=== PATIENT | male | born 1950 | race African-American/Black ===

== ENCOUNTER 2017-09-25 08:59 | Inpatient (IN) | payer MEDICARE, MEDICAID ==
[~2017-09-25] VITALS: Ht 180.3 cm; Wt 66.2 kg
[~2017-09-25 08:59] MED LIST: RISP1 PO
[2017-09-25 11:50] LABS: BASOPHILS % (AUTO) 0.6 % (0.0-2.0); EOSINOPHILS % (AUTO) 1.4 % (1.0-6.0); HEMATOCRIT 40.2 % (41-53); HEMOGLOBIN 13.8 g/dL (13.5-17.5); LYMPHOCYTES # (AUTO) 1.5 K/uL (1.0-4.8); LYMPHOCYTES % (AUTO) 19.9 % (22.0-44.0); MEAN CORPUSCULAR HEMOGLOBIN 32.4 pg (26.0-34.0); MEAN CORPUSCULAR HGB CONC 34.4 G/dL (31.0-37.0); MEAN CORPUSCULAR VOLUME 94 fL (80-100); MONOCYTES # (AUTO) 0.9 K/uL (0.1-1.0); MONOCYTES % (AUTO) 11.3 % (2.0-9.0); NEUTROPHILS # (AUTO) 5.1 K/uL (1.8-7.7); NEUTROPHILS % (AUTO) 66.8 % (40.0-70.0); PLATELET COUNT (AUTO) 278 K/uL (150-450); RED BLOOD CELL COUNT(AUTO) 4.26 MIL/uL (4.50-5.90); RED CELL DISTRIBUTION WIDTH 15.3 % (11.5-14.5)
[2017-09-25 11:59] LABS: ANION GAP 9 mmol/L (8-16); CALCIUM, TOTAL 8.7 mg/dL (8.8-10.5); CARBON DIOXIDE 28 mmol/L (22-29); CHLORIDE 101 mmol/L (98-107); CREATININE 1.12 mg/dL (0.60-1.30); GLOMERULAR FILTR. RATE CALC > 60 mL/min (>60); GLUCOSE,RANDOM 91 mg/dL (70-110); POTASSIUM 3.8 mmol/L (3.5-5.1); SODIUM SERUM 138 mmol/L (136-145); UREA NITROGEN, BLOOD 22 mg/dL (7-18)
[2017-09-25 12:05] LABS: ALANINE AMINOTRANSFERASE 29 U/L (12-78); ALBUMIN 3.6 g/dL (3.4-5.0); ALKALINE PHOSPHATASE 36 U/L (46-116); ASPARTATE AMINOTRANSFERASE 29 U/L (15-37); BILIRUBIN,TOTAL 1.4 mg/dL (0.1-1.0); TOTAL PROTEIN, SERUM 7.2 g/dL (6.4-8.2)
[2017-09-25] MEDS ORDERED: LORazepam 2 MG TABLET PO PRN (14:00)
[2017-09-25] MEDS ORDERED: ZOLPIDEM TARTRATE 10 MG TABLET PO PRN (14:00)
[2017-09-25] MEDS ORDERED: HALOPERIDOL 5 MG TABLET PO PRN (14:00)
[2017-09-25 16:36] VITALS: BP 133/85
[2017-09-25] MEDS ORDERED: IBUPROFEN 600 MG TABLET PO PRN (17:15)
[2017-09-26 00:49] VITALS: BP 130/82
[2017-09-26] MEDS ORDERED: MAGNESIUM HYDROXIDE SUSPENSION 30 ML UDCUP PO PRN (07:15)
[2017-09-26] MEDS ORDERED: BENZOCAINE/MENTHOL LOZENGE MM PRN (07:15)
[2017-09-26] MEDS ORDERED: ONDANSETRON HCL 4 MG TABLET PO PRN (07:15)
[2017-09-26] MEDS ORDERED: PETROLATUM,WHITE 71 GM JELLY TP PRN (07:15)
[2017-09-26] MEDS ORDERED: ALBUTEROL SULFATE HFA 90 MCG/PUFF 8 GM INHALER IH PRN (07:15)
[2017-09-26] MEDS ORDERED: CloNIDine HCL 0.1 MG TABLET PO PRN (07:15)
[2017-09-26] MEDS ORDERED: BACITRACIN 28.4 GM OINTMENT TP PRN (07:15)
[2017-09-26] MEDS ORDERED: ACETAMINOPHEN 325 MG TABLET PO PRN (07:15)
[2017-09-26] MEDS ORDERED: MAG HYDROX/AL HYDROX/SIMETH ES 30 ML SUSPENSION UDCUP PO PRN (07:15)
[2017-09-26] MEDS ORDERED: LOPERAMIDE HCL 2 MG CAPSULE PO PRN (07:15)
[2017-09-26] MEDS ORDERED: IBUPROFEN 600 MG TABLET PO PRN (07:15)
[2017-09-26 09:29] VITALS: BP 145/79
[2017-09-26] MEDS: RisperiDONE 1 MG TABLET PO SCH (12:46)
[2017-09-26 16:00] VITALS: BP 128/72
[2017-09-27] VITALS: BP 142/81
[2017-09-27 08:46] VITALS: BP 145/81
[2017-09-27] MEDS: ATENOLOL 50 MG TABLET PO SCH (09:00)
[2017-09-27] MEDS: RisperiDONE 1 MG TABLET PO SCH (09:03)
[2017-09-27 09:56] VITALS: BP 104/79
[2017-09-27 16:00] VITALS: BP 110/68
[2017-09-28 08:47] VITALS: BP 133/87
[2017-09-28] MEDS: ATENOLOL 50 MG TABLET PO SCH (08:47)
[2017-09-28] MEDS: RisperiDONE 1 MG TABLET PO SCH (08:47)
[2017-09-28] MEDS ORDERED: ATEN50TA PO (10:19)
== END 2017-09-28 12:08 | disposition home or self-care (01) | DRG 750 ==
LOC: EMS 09:00 → B2S 14:02
PROVIDERS: ADMIT Psychiatry & Neurology Child & Adolescent Psychiatry; ATTEND Psychiatry & Neurology Child & Adolescent Psychiatry
DX: F20.0 Paranoid schizophrenia (principal); F10.231 Alcohol dependence with withdrawal delirium; J44.9 Chronic obstructive pulmonary disease, unspecified; B18.2 Chronic viral hepatitis C; F14.10 Cocaine abuse, uncomplicated; F15.10 Other stimulant abuse, uncomplicated; G47.00 Insomnia, unspecified; I10 Essential (primary) hypertension; M19.90 Unspecified osteoarthritis, unspecified site; F17.210 Nicotine dependence, cigarettes, uncomplicated; F41.9 Anxiety disorder, unspecified; Z71.6 Tobacco abuse counseling
CPT/HCPCS: 99285; 99406; G0480

== ENCOUNTER 2019-05-26 23:47 | Inpatient (IN) | payer MEDICARE, MEDICAID ==
[~2019-05-26] VITALS: Ht 175.3 cm; Wt 64.9 kg
[~2019-05-26 23:47] MED LIST changes: +ATEN50TA PO; +OLAN10TA3 PO; -RISP1 PO; +TRAZ-252 PO
[2019-05-27 00:30] LABS: BASOPHILS % (AUTO) 1.4 % (0.0-2.0); EOSINOPHILS % (AUTO) 1.2 % (1.0-6.0); HEMATOCRIT 43.7 % (41-53); HEMOGLOBIN 14.4 g/dL (13.5-17.5); LYMPHOCYTES # (AUTO) 1.8 K/uL (1.0-4.8); LYMPHOCYTES % (AUTO) 21.4 % (22.0-44.0); MEAN CORPUSCULAR HEMOGLOBIN 30.8 pg (26.0-34.0); MEAN CORPUSCULAR VOLUME 94 fL (80-100); MONOCYTES # (AUTO) 0.9 K/uL (0.1-1.0); MONOCYTES % (AUTO) 10.5 % (2.0-9.0); NEUTROPHILS # (AUTO) 5.6 K/uL (1.8-7.7); NEUTROPHILS % (AUTO) 65.5 % (40.0-70.0); PLATELET COUNT (AUTO) 267 K/uL (150-450); RED BLOOD CELL COUNT(AUTO) 4.68 MIL/uL (4.50-5.90); RED CELL DISTRIBUTION WIDTH 15.2 % (11.5-14.5)
[2019-05-27 00:44] LABS: ANION GAP 13 mmol/L (8-16); CALCIUM, TOTAL 9.8 mg/dL (8.8-10.5); CARBON DIOXIDE 24 mmol/L (22-29); CHLORIDE 103 mmol/L (98-107); CREATININE 1.69 mg/dL (0.60-1.30); GLOMERULAR FILTR. RATE CALC 49 mL/min (>60); GLUCOSE,RANDOM 112 mg/dL (70-110); POTASSIUM 4.5 mmol/L (3.5-5.1); SODIUM SERUM 140 mmol/L (136-145); UREA NITROGEN, BLOOD 39 mg/dL (7-18)
[2019-05-27] MEDS ORDERED: HALOPERIDOL LACTATE 5 MG/ML VIAL IM ONE (00:45)
[2019-05-27] MEDS ORDERED: LORazepam 2 MG/ML VIAL IM ONE (00:45)
[2019-05-27 00:49] LABS: ALANINE AMINOTRANSFERASE 20 U/L (12-78); ALBUMIN 4.6 g/dL (3.4-5.0); ALKALINE PHOSPHATASE 45 U/L (46-116); ASPARTATE AMINOTRANSFERASE 29 U/L (15-37); BILIRUBIN,TOTAL 1.7 mg/dL (0.1-1.0); TOTAL PROTEIN, SERUM 8.4 g/dL (6.4-8.2)
[2019-05-27 01:25] LABS: CREATINE KINASE, TOTAL ONLY 744 U/L (39-308)
[2019-05-27] MEDS ORDERED: ACETAMINOPHEN 325 MG TABLET PO PRN ×2 (02:15→13:30)
[2019-05-27] MEDS ORDERED: 0.9% SODIUM CHLORIDE 10 ML SYRINGE IVP PRN (02:15)
[2019-05-27] MEDS ORDERED: ZOLPIDEM TARTRATE 10 MG TABLET PO PRN (02:30)
[2019-05-27] MEDS ORDERED: HALOPERIDOL 5 MG TABLET PO PRN (02:30)
[2019-05-27] MEDS ORDERED: LORazepam 2 MG TABLET PO PRN (02:30)
[2019-05-27 04:33] VITALS: BP 122/56
[2019-05-27] MEDS: PNEUMOCOCCAL VACCINE POLYVALENT 0.5 ML VIAL [PPSV23] IM ONE (06:30)
[2019-05-27] MEDS: ATENOLOL 50 MG TABLET PO SCH (09:59)
[2019-05-27] MEDS ORDERED: ONDANSETRON HCL 4 MG TABLET PO PRN (13:30)
[2019-05-27] MEDS ORDERED: MAG HYDROX/AL HYDROX/SIMETH ES 30 ML SUSPENSION UDCUP PO PRN (13:30)
[2019-05-27] MEDS ORDERED: ALBUTEROL SULFATE HFA 90 MCG/PUFF 8 GM INHALER IH PRN (13:30)
[2019-05-27] MEDS ORDERED: PETROLATUM,WHITE 28 GM JELLY TP PRN (13:30)
[2019-05-27] MEDS ORDERED: CloNIDine HCL 0.1 MG TABLET PO PRN (13:30)
[2019-05-27] MEDS ORDERED: IBUPROFEN 400 MG TABLET PO PRN (13:30)
[2019-05-27] MEDS ORDERED: MAGNESIUM HYDROXIDE SUSPENSION 30 ML UDCUP PO PRN (13:30)
[2019-05-27] MEDS ORDERED: GuaiFENesin/D-METHORPHAN [SUGAR-FREE] 200-20MG/10 ML SYRUP UDCUP PO PRN (13:30)
[2019-05-27] MEDS ORDERED: LOPERAMIDE HCL 2 MG CAPSULE PO PRN (13:30)
[2019-05-27] MEDS ORDERED: DOCUSATE SODIUM 100 MG CAPSULE PO PRN (13:30)
[2019-05-27] MEDS ORDERED: NICOTINE 14 MG/24 HOUR PATCH TD PRN (13:30)
[2019-05-27 20:49] VITALS: BP 112/78
[2019-05-27] MEDS: TraZODone HCL 50 MG TABLET PO SCH (21:04)
[2019-05-27] MEDS: OLANZapine 10 MG TABLET PO SCH (21:04)
[2019-05-28 09:15] VITALS: BP 120/76
[2019-05-28] MEDS: OLANZapine 10 MG TABLET PO SCH ×2 (09:16→20:41)
[2019-05-28] MEDS: ATENOLOL 50 MG TABLET PO SCH (09:16)
[2019-05-28 17:26] VITALS: BP 130/67
[2019-05-28] MEDS: TraZODone HCL 50 MG TABLET PO SCH (20:40)
[2019-05-29 08:00] VITALS: BP 120/76
[2019-05-29] MEDS: OLANZapine 10 MG TABLET PO SCH ×2 (09:06→20:50)
[2019-05-29] MEDS: ATENOLOL 50 MG TABLET PO SCH (09:06)
[2019-05-29 16:47] VITALS: BP 94/59
[2019-05-29] MEDS: TraZODone HCL 50 MG TABLET PO SCH (20:50)
[2019-05-30 08:48] VITALS: BP 126/74
[2019-05-30] MEDS: OLANZapine 10 MG TABLET PO SCH ×2 (10:41→20:43)
[2019-05-30] MEDS: ATENOLOL 50 MG TABLET PO SCH (10:41)
[2019-05-30 16:27] VITALS: BP 116/79
[2019-05-30] MEDS: TraZODone HCL 50 MG TABLET PO SCH (20:43)
[2019-05-31 00:05] VITALS: BP 109/72
[2019-05-31] MEDS: ATENOLOL 50 MG TABLET PO SCH (08:09)
[2019-05-31] MEDS: OLANZapine 10 MG TABLET PO SCH ×2 (08:09→20:26)
[2019-05-31 08:46] VITALS: BP 145/93
[2019-05-31 16:43] VITALS: BP 123/66
[2019-05-31] MEDS: TraZODone HCL 50 MG TABLET PO SCH (20:24)
[2019-06-01] MEDS: ATENOLOL 50 MG TABLET PO SCH (09:06)
[2019-06-01] MEDS: OLANZapine 10 MG TABLET PO SCH ×2 (09:06→20:34)
[2019-06-01 17:17] VITALS: BP 136/72
[2019-06-01] MEDS: TraZODone HCL 50 MG TABLET PO SCH (20:34)
[2019-06-02] MEDS: OLANZapine 10 MG TABLET PO SCH ×2 (09:00→20:41)
[2019-06-02] MEDS: ATENOLOL 50 MG TABLET PO SCH (09:00)
[2019-06-02 10:08] VITALS: BP 143/88
[2019-06-02 18:02] VITALS: BP 123/71
[2019-06-02] MEDS: TraZODone HCL 50 MG TABLET PO SCH (20:41)
[2019-06-03 08:37] VITALS: BP 154/93
[2019-06-03] MEDS: OLANZapine 10 MG TABLET PO SCH ×2 (09:16→20:57)
[2019-06-03] MEDS: ATENOLOL 50 MG TABLET PO SCH (09:16)
[2019-06-03 16:01] VITALS: BP 122/80
[2019-06-03] MEDS: TraZODone HCL 50 MG TABLET PO SCH (20:57)
[2019-06-04 08:52] VITALS: BP 123/81
[2019-06-04] MEDS: OLANZapine 10 MG TABLET PO SCH (09:14)
[2019-06-04] MEDS: ATENOLOL 50 MG TABLET PO SCH (09:14)
== END 2019-06-04 18:00 | disposition home or self-care (01) | DRG 750 ==
LOC: EMS 23:47 → 3EI 05-27 03:08 → EDBD 05-27 03:08 → 3EI 06-03 20:58
PROVIDERS: ADMIT Psychiatry & Neurology Psychiatry; ATTEND Psychiatry & Neurology Psychiatry
DX: F20.9 Schizophrenia, unspecified (principal); N17.9 Acute kidney failure, unspecified; M62.82 Rhabdomyolysis; K73.9 Chronic hepatitis, unspecified; Z59.0 Homelessness; I10 Essential (primary) hypertension; K74.60 Unspecified cirrhosis of liver; F10.10 Alcohol abuse, uncomplicated; F17.210 Nicotine dependence, cigarettes, uncomplicated; F60.0 Paranoid personality disorder; Z71.6 Tobacco abuse counseling; Z71.41 Alcohol abuse counseling and surveillance of alcoholic; Z91.14 Patient's other noncompliance with medication regimen; Z79.899 Other long term (current) drug therapy
CPT/HCPCS: 96372; G0480; J1630; J2060

== ENCOUNTER 2019-09-02 02:13 | Emergency (ER) | payer MEDICARE, OTHER ==
[~2019-09-02] VITALS: Ht 175.3 cm; Wt 76.4 kg
[2019-09-02] MEDS ORDERED: AMLO5TAB9 PO (02:43)
[2019-09-02 03:18] LABS: BASOPHILS % (AUTO) 1.7 % (0.0-2.0); EOSINOPHILS % (AUTO) 3.2 % (1.0-6.0); HEMATOCRIT 40.6 % (41-53); HEMOGLOBIN 13.6 g/dL (13.5-17.5); LYMPHOCYTES # (AUTO) 1.3 K/uL (1.0-4.8); LYMPHOCYTES % (AUTO) 24.4 % (22.0-44.0); MEAN CORPUSCULAR HGB CONC 33.4 G/dL (31.0-37.0); MEAN CORPUSCULAR VOLUME 93 fL (80-100); MONOCYTES # (AUTO) 0.5 K/uL (0.1-1.0); NEUTROPHILS # (AUTO) 3.2 K/uL (1.8-7.7); NEUTROPHILS % (AUTO) 60.7 % (40.0-70.0); PLATELET COUNT (AUTO) 247 K/uL (150-450); RED BLOOD CELL COUNT(AUTO) 4.38 MIL/uL (4.50-5.90); RED CELL DISTRIBUTION WIDTH 15.3 % (11.5-14.5)
[2019-09-02 03:27] LABS: ANION GAP 6 mmol/L (8-16); CALCIUM, TOTAL 8.5 mg/dL (8.8-10.5); CARBON DIOXIDE 30 mmol/L (22-29); CHLORIDE 101 mmol/L (98-107); CREATININE 1.54 mg/dL (0.60-1.30); GLOMERULAR FILTR. RATE CALC 55 mL/min (>60); GLUCOSE,RANDOM 81 mg/dL (70-110); POTASSIUM 4.2 mmol/L (3.5-5.1); SODIUM SERUM 137 mmol/L (136-145); UREA NITROGEN, BLOOD 22 mg/dL (7-18)
[2019-09-02 03:32] LABS: ALANINE AMINOTRANSFERASE 27 U/L (12-78); ALBUMIN 3.7 g/dL (3.4-5.0); ALKALINE PHOSPHATASE 38 U/L (46-116); ASPARTATE AMINOTRANSFERASE 36 U/L (15-37); BILIRUBIN,TOTAL 1.4 mg/dL (0.1-1.0); TOTAL PROTEIN, SERUM 7.1 g/dL (6.4-8.2)
[2019-09-02 04:00] VITALS: BP 131/87
[2019-09-02] MEDS ORDERED: MAGNESIUM OXIDE 400 MG TABLET PO ONE (04:00)
== END 2019-09-02 05:52 | disposition home or self-care (01) ==
LOC: EMS 02:14
DX: F20.9 Schizophrenia, unspecified (principal); F69 Unspecified disorder of adult personality and behavior; I12.9 Hypertensive chronic kidney disease with stage 1 through stage 4 chronic kidney disease, or unspecified chronic kidney disease; N18.9 Chronic kidney disease, unspecified; N17.9 Acute kidney failure, unspecified; F17.210 Nicotine dependence, cigarettes, uncomplicated
CPT/HCPCS: 36415; 80053; 85025; 99285; G0480

== ENCOUNTER 2020-03-12 17:47 | Emergency (ER) | payer MEDICARE, OTHER ==
[~2020-03-12] VITALS: Ht 175.3 cm; Wt 70.5 kg
[~2020-03-12 17:47] MED LIST changes: +AMLO5TAB9 PO; +ATEN-72 PO; -ATEN50TA PO; -OLAN10TA3 PO; -TRAZ-252 PO
[2020-03-13] MEDS ORDERED: ACETAMINOPHEN 325 MG TABLET PO ONE (02:45)
[2020-03-13] MEDS ORDERED: AMOX TR/POT CLAV 500 MG/125 MG TABLET PO ONE (03:45)
[2020-03-13 04:36] VITALS: BP 121/72
== END 2020-03-13 04:15 | disposition home or self-care (01) ==
LOC: EMS 17:47
DX: S02.85XA Fracture of orbit, unspecified, initial encounter for closed fracture (principal); W22.8XXA Striking against or struck by other objects, initial encounter; Y93.89 Activity, other specified; Y92.89 Other specified places as the place of occurrence of the external cause; Y99.8 Other external cause status
CPT/HCPCS: 70486; Z7502; Z7610

== ENCOUNTER 2021-07-24 11:10 | Emergency (ER) | payer MEDICARE, OTHER ==
[~2021-07-24] VITALS: Ht 180.3 cm; Wt 72.7 kg
[~2021-07-24 11:10] MED LIST changes: +AMLO-257 PO; -AMLO5TAB9 PO; -ATEN-72 PO
[2021-07-24 11:37] VITALS: BP 177/111
[2021-07-24 12:50] LABS: BASOPHILS % (AUTO) 1.6 % (0.0-2.0); EOSINOPHILS % (AUTO) 4.2 % (1.0-6.0); HEMATOCRIT 42.2 % (41-53); LYMPHOCYTES # (AUTO) 2.1 K/uL (1.0-4.8); LYMPHOCYTES % (AUTO) 27.7 % (22.0-44.0); MEAN CORPUSCULAR HEMOGLOBIN 30.8 pg (26.0-34.0); MEAN CORPUSCULAR HGB CONC 33.1 G/dL (31.0-37.0); MEAN CORPUSCULAR VOLUME 93 fL (80-100); MONOCYTES # (AUTO) 0.8 K/uL (0.1-1.0); MONOCYTES % (AUTO) 10.4 % (2.0-9.0); NEUTROPHILS # (AUTO) 4.3 K/uL (1.8-7.7); NEUTROPHILS % (AUTO) 56.1 % (40.0-70.0); PLATELET COUNT (AUTO) 367 K/uL (150-450); RED BLOOD CELL COUNT(AUTO) 4.53 MIL/uL (4.50-5.90); RED CELL DISTRIBUTION WIDTH 15.9 % (11.5-14.5)
[2021-07-24 12:57] LABS: AMPHET/METH SCREEN,URINE NEGATIVE (NEGATIVE); BARBITURATE SCREEN, URINE NEGATIVE (NEGATIVE); BENZODIAZEPINES SCREEN,URINE NEGATIVE (NEGATIVE); CANNABINOID SCREEN,URINE NEGATIVE (NEGATIVE); COCAINE SCREEN,URINE NEGATIVE (NEGATIVE); METHADONE SCREEN, URINE NEGATIVE (NEGATIVE); OPIATE SCREEN,URINE NEGATIVE (NEGATIVE); PHENCYCLIDINE SCREEN,URINE NEGATIVE (NEGATIVE)
[2021-07-24 13:03] LABS: ANION GAP 7 mmol/L (8-16); CALCIUM, TOTAL 9.5 mg/dL (8.8-10.5); CARBON DIOXIDE 32 mmol/L (22-29); CHLORIDE 103 mmol/L (98-107); CREATININE 1.48 mg/dL (0.60-1.30); GLOMERULAR FILTR. RATE CALC 57 mL/min (>60); GLUCOSE,RANDOM 101 mg/dL (70-110); POTASSIUM 4.3 mmol/L (3.5-5.1); SODIUM SERUM 142 mmol/L (136-145); UREA NITROGEN, BLOOD 28 mg/dL (7-18)
[2021-07-24 13:09] LABS: ALANINE AMINOTRANSFERASE 30 U/L (12-78); ALKALINE PHOSPHATASE 54 U/L (46-116); ASPARTATE AMINOTRANSFERASE 30 U/L (15-37); BILIRUBIN,TOTAL 1.4 mg/dL (0.1-1.0); TOTAL PROTEIN, SERUM 8.4 g/dL (6.4-8.2)
[2021-07-24 13:57] LABS: AMPHET/METH SCREEN,URINE POSITIVE (NEGATIVE); BARBITURATE SCREEN, URINE NEGATIVE (NEGATIVE); BENZODIAZEPINES SCREEN,URINE NEGATIVE (NEGATIVE); CANNABINOID SCREEN,URINE NEGATIVE (NEGATIVE); COCAINE SCREEN,URINE POSITIVE (NEGATIVE); METHADONE SCREEN, URINE NEGATIVE (NEGATIVE); OPIATE SCREEN,URINE NEGATIVE (NEGATIVE)
[2021-07-24 13:58] LABS: PHENCYCLIDINE SCREEN,URINE NEGATIVE (NEGATIVE)
== END 2021-07-24 15:24 | disposition home or self-care (01) ==
LOC: EMS 11:10
DX: F20.9 Schizophrenia, unspecified (principal); F17.210 Nicotine dependence, cigarettes, uncomplicated; I10 Essential (primary) hypertension; K75.9 Inflammatory liver disease, unspecified
CPT/HCPCS: 36415; 80053; 80307; 85025; 99285; G0480